=== PATIENT | female | born 1965 | race Caucasian/White ===

== ENCOUNTER → 2019-01-30 12:08 | Outpatient (CLI) | payer OTHER, SELFPAY ==
[2019-01-30 12:23] LABS: Specimen Label BRCA
== END ==
PROVIDERS: PCP Obstetrics & Gynecology; Visit Provider Obstetrics & Gynecology
DX: Z80.41 Family history of malignant neoplasm of ovary (principal); Z80.3 Family history of malignant neoplasm of breast
CPT/HCPCS: 36415

== ENCOUNTER 2019-03-01 14:18 | Emergency (ER) | payer OTHER, SELFPAY ==
[2019-03-01 14:20] VITALS: BP 151/83; PULSE 66; RESP 18; TEMP 36.7; O2SAT 100
--- NOTE | 2019-03-01 14:45 | PC.NURSE ---
CSM fully intact. No neuro deficit. c/o feeling fullness @ cervical spine w/o tenderness. States it just feels weird or tingling. + headache. No vision changes. Denies fever but + night sweats. 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
[2019-03-01 14:48] LABS: Add Manual Diff / Slide Review NO; Basophils Absolute Auto 100 /uL (0-100); Basophils Percent Auto 0.9 % (0-2); Eosinophils Absolute Auto 100 /uL (0-450); Eosinophils Percent Auto 1.5 % (2-4); Hematocrit 38.3 % (36-46); Hemoglobin 12.8 g/dL (12.0-16.0); Lymphocytes Absolute Auto 1900 /uL (1100-4500); Mean Corpuscular HGB Conc 33.5 % (30-36); Mean Corpuscular Hemoglobin 29.7 PG (26-34); Mean Corpuscular Volume 88.6 fL (80-100); Monocytes Absolute Auto 700 /uL (0-900); Monocytes Percent Auto 7.8 % (3-14); Neutrophils Absolute Auto 5900 /uL (1500-7000); Neutrophils Percent Auto 67.8 % (50-75); Platelet Count 249 X10^3/uL (150-400); Red Blood Cell Count 4.32 X10^6/uL (4.0-5.2); Red Cell Distribution Width 13.5 % (11.6-14.8); White Blood Cell Count 8.8 X10^3/uL (4.5-11.0)
[2019-03-01 14:55] LABS: Prothrombin Time 11.5 SECONDS (10.1-12.7)
[2019-03-01 14:58] LABS: PTT Partial Thromboplastin Tim 36 SECONDS (26.4-36.2)
[2019-03-01 15:04] LABS: Alanine Aminotransferase 16 IU/L (<35); Albumin 4.3 g/dL (3.5-5.0); Albumin Globulin Ratio 1.4 (1.0-2.8); Alkaline Phosphatase 77 U/L (38-126); Aspartate Aminotransferase 24 IU/L (14-36); BUN Creatinine Ratio 22.5 (6-22); Bilirubin Total 0.3 mg/dL (0.2-1.3); Blood Urea Nitrogen 18 mg/dL (7-17); Calcium 9.3 mg/dL (8.4-10.2); Carbon Dioxide 26 mmol/L (22-32); Chloride 102 mmol/L (98-107); Estimated Glomerular Filt Rate > 60.0 mL/min (>60); Globulin 3.1 g/dL (1.7-4.1); Glucose 78 mg/dL (70-100); HEMOLYSIS < 15 (0-50); Lipase 80 U/L (23-300); Potassium 4.3 mmol/L (3.4-5.1); Sodium 137 mmol/L (137-145); Total Protein 7.4 g/dL (6.3-8.2)
[2019-03-01 15:06] LABS: C-Reactive Protein Quant 0.6 mg/dL (<1.0); Erythrocyte Sedimentation Rate 29 MM/HR (0-20)
[2019-03-01 15:07] LABS: Lactate (Lactic Acid) < 0.5 mmol/L (0.7-2.1)
[2019-03-01 15:20] LABS: Procalcitonin < 0.05 ng/mL (<0.5)
--- NOTE | 2019-03-01 15:42 | ED.BACK ---
HPI - Back Pain/Injury <Renata Garrido DO - Last Filed: 03/02/19 07:11> General Chief Complaint: Back Pain/Injury Stated Complaint: back pain,swelling in back of neck Time Seen by Provider: 03/01/19 15:40 Source: patient Limitations: no limitations History of Present Illness HPI Narrative: Patient is a 53-year-old female with history of endocarditis and recent osteomyelitis of July through October of 2018 presenting with increased spine pain in the thoracic area where she previously had the osteomyelitis. She denies any fever chills no chest pain shortness of breath or body aches. This feels similar to her previous osteomyelitis. She says that last time she did not present with fever either. She was followed and seen at the [facility] where she was treated. She called her infectious disease doctor down there today who recommended she go to the nearest hospital for evaluation. Related Data Home Medications Medication Instructions Recorded Confirmed Esomeprazole Magnesium (Nexium) 40 mg PO Q DAY #0 08/07/07 11/28/18 amlodipine 5 mg tablet 5 mg PO DAILY 10/04/18 03/01/19 atorvastatin 20 mg tablet 20 mg PO DAILY 10/04/18 03/01/19 spironolactone 25 mg tablet 25 mg PO DAILY 10/04/18 03/01/19 sertraline 100 mg PO DAILY 03/01/19 03/01/19 Previous Rx's Medication Instructions Recorded estradiol 0.5 gram VAG DAILY #42.5 gram 10/31/18 Allergies Allergy/AdvReac Type Severity Reaction Status Date / Time Sulfa (Sulfonamide Allergy Verified 03/01/19 14:25 Antibiotics) Review of Systems <DO Kirti Gamino Last Filed: 03/02/19 07:11> Review of Systems Narrative: GENERAL: Denies chills, fatigue, malaise, fever, sweats, travel HEENT: Denies sinus pain, ear pain, sore throat, difficulty swallowing, neck pain RESPIRATORY: Denies dyspnea, cough, wheezing, hemoptysis, sputum. CARDIOVASCULAR: Denies chest pain, palpitations, orthopnea, edema GASTROINTESTINAL: Denies nausea, vomiting, abdominal pain, diarrhea, constipation, melena. : Denies dysuria, frequency, incontinence, hematuria, urinary retention, flank pain. MUSCULOSKELETAL: See HPI SKIN: No rash, no erythema, no pruritus NEUROLOGIC: Denies weakness, dizziness, headache, numbness, change in speech, confusion PSYCHIATRIC: No concerning psychosocial issues. 12 point review of systems is negative except for those stated above and HPI Patient History <Renata Garrido DO - Last Filed: 03/02/19 07:11> Medical History Abnormal Pap smear of cervix (Acute ~1996) Family history of ovarian cancer (Acute) Fibroid uterus (Acute) Vertigo (Acute ~2015) Surgical History Anesthesia (Resolved) History of removal of cyst (Resolved ~1994) Family History Father Multiple myeloma Cancer Mother Mental health problem Alzheimer's dementia, late onset Brother Mitral valve prolapse Sister Ovarian cancer Brother Marfan syndrome Grandfather Stroke Grandmother Alzheimer's disease Grandfather History of heart disease Family/Other Anxiety Social History Smoking Status: Never smoker Smoking Status: Never smoker alcohol intake frequency: 0-2 drinks per day Substance Use Type: does not use Exam <Renata Garrido DO - Last Filed: 03/02/19 07:11> Initial Vital Signs Initial Vital Signs: Vital Signs Temperature 98.0 F 03/01/19 14:20 Pulse Rate 66 03/01/19 14:20 Respiratory Rate 18 03/01/19 14:20 Blood Pressure 151/83 H 03/01/19 14:20 Pulse Oximetry 100 03/01/19 14:20 GENERAL: Well-appearing, well-nourished and in no acute distress. HEENT: Head atraumatic,EOMI, pupils reactive, face symmetric, moist mucous membranes CARDIOVASCULAR: Regular rate and rhythm without murmurs, rubs or gallops. RESPIRATORY: Breath sounds equal bilaterally, no wheezes rales or rhonchi. ABDOMEN: Soft, nontender. Normoactive bowel sounds all 4 quadrants. No guarding or rebound. BACK: Vertebral tenderness in thoracic spine T7-8 area noted edema tender to touch EXTREMITIES: Normal range of motion, no clubbing or edema. Neurovascularly intact NEUROLOGICAL: Alert and oriented x4.Normal gait and speech. SKIN: Warm, dry, no laceration, no petechiae, no rashes or lesions. <oTm Hooker, DO - Last Filed: 03/02/19 03:45> Initial Vital Signs Initial Vital Signs: Vital Signs Temperature 98.0 F 03/01/19 14:20 Pulse Rate 66 03/01/19 14:20 Respiratory Rate 18 03/01/19 14:20 Blood Pressure 151/83 H 03/01/19 14:20 Pulse Oximetry 100 03/01/19 14:20 Course <Renata Garrido, DO - Last Filed: 03/02/19 07:11> Orders Ordered: ED Orders 03/01/19 14:40 CRP [C-Reactive Protein Quant] Stat Complete Blood Count AUTO DIFF Stat Comprehensive Metabolic Panel Stat Erythrocyte Sedimentation Rate Stat Lactate (Lactic Acid) Stat Lipase Stat Partial Thromboplastin Time Stat Procalcitonin Stat Prothrombin Time INR Stat 03/01/19 14:54 Blood Culture Stat 03/01/19 15:56 MR thoracic spine wo/w con Stat Vital Signs Vital signs: Vital Signs - 8 hr 03/01/19 20:15 Pulse Rate 75 Blood Pressure 155/84 H Pulse Oximetry 100 <Tom Hooker, DO - Last Filed: 03/02/19 03:45> Course Course Narrative: Patient received in sign-out from Dr. Garrido. I have performed an independent history and physical. I have spoken with full spine surgery and the [facility] and after reviewing the patient's case as well as her MRI they do not feel that today's findings represent an acute condition and certainly not 1 that requires antibiotics or specific intervention. The patient has a scheduled appointment in the upcoming days and a recommend she follow this plan. She is nontoxic, not septic and denies any neurologic symptoms. Return precautions have been given, questions answered and patient is in complete agreement with this plan Orders Ordered: ED Orders 03/01/19 14:40 CRP [C-Reactive Protein Quant] Stat Complete Blood Count AUTO DIFF Stat Comprehensive Metabolic Panel Stat Erythrocyte Sedimentation Rate Stat Lactate (Lactic Acid) Stat Lipase Stat Partial Thromboplastin Time Stat Procalcitonin Stat Prothrombin Time INR Stat 03/01/19 14:54 Blood Culture Stat 03/01/19 15:56 MR thoracic spine wo/w con Stat Vital Signs Vital signs: Vital Signs - 8 hr 03/01/19 20:15 Pulse Rate 75 Blood Pressure 155/84 H Pulse Oximetry 100 MDM - Back Pain/Injury <Renata Hema, DO - Last Filed: 03/02/19 07:11> Lab Data Attestation: I reviewed the patient's lab results. Result diagrams: 03/01/19 14:40 03/01/19 14:40 Labs: Lab Results 03/01/19 03/01/19 03/01/19 Range/Units 14:40 14:40 14:40 WBC 8.8 (4.5-11.0) X10^3/uL RBC 4.32 (4.0-5.2) X10^6/uL Hgb 12.8 (12.0-16.0) g/dL Hct 38.3 (36-46) % MCV 88.6 (80-100) fL MCH 29.7 (26-34) PG MCHC 33.5 (30-36) % RDW 13.5 (11.6-14.8) % Plt Count 249 (150-400) X10^3/uL Neut % (Auto) 67.8 (50-75) % Lymph % (Auto) 22.0 L (25-40) % Fountain % (Auto) 7.8 (3-14) % Eos % (Auto) 1.5 L (2-4) % Baso % (Auto) 0.9 (0-2) % Neut # (Auto) 5900 (0244-1606) /uL Lymph # (Auto) 1900 (7268-9228) /uL Fountain # (Auto) 700 (0-900) /uL Eos # (Auto) 100 (0-450) /uL Baso # (Auto) 100 (0-100) /uL ESR (0-20) MM/HR PT 11.5 (10.1-12.7) SECONDS INR 1.0 (0.9-1.3) APTT 36 (26.4-36.2) SECONDS Sodium (137-145) mmol/L Potassium (3.4-5.1) mmol/L Chloride (98-107) mmol/L Carbon Dioxide (22-32) mmol/L BUN (7-17) mg/dL Creatinine (0.52-1.04) mg/dL Estimated GFR (>60) mL/min BUN/Creatinine Ratio (6-22) Glucose (70-100) mg/dL Lactate (0.7-2.1) mmol/L Calcium (8.4-10.2) mg/dL Total Bilirubin (0.2-1.3) mg/dL AST (14-36) IU/L ALT (<35) IU/L Alkaline Phosphatase (38-126) U/L C-Reactive Protein (<1.0) mg/dL Total Protein (6.3-8.2) g/dL Albumin (3.5-5.0) g/dL Globulin (1.7-4.1) g/dL Albumin/Globulin Ratio (1.0-2.8) Lipase (23-300) U/L Procalcitonin < 0.05 (<0.5) ng/mL 03/01/19 03/01/19 03/01/19 Range/Units 14:40 14:40 14:40 WBC (4.5-11.0) X10^3/uL RBC (4.0-5.2) X10^6/uL Hgb (12.0-16.0) g/dL Hct (36-46) % MCV (80-100) fL MCH (26-34) PG MCHC (30-36) % RDW (11.6-14.8) % Plt Count (150-400) X10^3/uL Neut % (Auto) (50-75) % Lymph % (Auto) (25-40) % Fountain % (Auto) (3-14) % Eos % (Auto) (2-4) % Baso % (Auto) (0-2) % Neut # (Auto) (8401-7198) /uL Lymph # (Auto) (7519-4350) /uL Fountain # (Auto) (0-900) /uL Eos # (Auto) (0-450) /uL Baso # (Auto) (0-100) /uL ESR 29 H (0-20) MM/HR PT (10.1-12.7) SECONDS INR (0.9-1.3) APTT (26.4-36.2) SECONDS Sodium 137 (137-145) mmol/L Potassium 4.3 (3.4-5.1) mmol/L Chloride 102 (98-107) mmol/L Carbon Dioxide 26 (22-32) mmol/L BUN 18 H (7-17) mg/dL Creatinine 0.80 (0.52-1.04) mg/dL Estimated GFR > 60.0 (>60) mL/min BUN/Creatinine Ratio 22.5 H (6-22) Glucose 78 (70-100) mg/dL Lactate < 0.5 L (0.7-2.1) mmol/L Calcium 9.3 (8.4-10.2) mg/dL Total Bilirubin 0.3 (0.2-1.3) mg/dL AST 24 (14-36) IU/L ALT 16 (<35) IU/L Alkaline Phosphatase 77 (38-126) U/L C-Reactive Protein (<1.0) mg/dL Total Protein 7.4 (6.3-8.2) g/dL Albumin 4.3 (3.5-5.0) g/dL Globulin 3.1 (1.7-4.1) g/dL Albumin/Globulin Ratio 1.4 (1.0-2.8) Lipase 80 (23-300) U/L Procalcitonin (<0.5) ng/mL 03/01/19 Range/Units 14:40 WBC (4.5-11.0) X10^3/uL RBC (4.0-5.2) X10^6/uL Hgb (12.0-16.0) g/dL Hct (36-46) % MCV (80-100) fL MCH (26-34) PG MCHC (30-36) % RDW (11.6-14.8) % Plt Count (150-400) X10^3/uL Neut % (Auto) (50-75) % Lymph % (Auto) (25-40) % Fountain % (Auto) (3-14) % Eos % (Auto) (2-4) % Baso % (Auto) (0-2) % Neut # (Auto) (3178-8222) /uL Lymph # (Auto) (5438-2837) /uL Fountain # (Auto) (0-900) /uL Eos # (Auto) (0-450) /uL Baso # (Auto) (0-100) /uL ESR (0-20) MM/HR PT (10.1-12.7) SECONDS INR (0.9-1.3) APTT (26.4-36.2) SECONDS Sodium (137-145) mmol/L Potassium (3.4-5.1) mmol/L Chloride (98-107) mmol/L Carbon Dioxide (22-32) mmol/L BUN (7-17) mg/dL Creatinine (0.52-1.04) mg/dL Estimated GFR (>60) mL/min BUN/Creatinine Ratio (6-22) Glucose (70-100) mg/dL Lactate (0.7-2.1) mmol/L Calcium (8.4-10.2) mg/dL Total Bilirubin (0.2-1.3) mg/dL AST (14-36) IU/L ALT (<35) IU/L Alkaline Phosphatase (38-126) U/L C-Reactive Protein 0.6 (<1.0) mg/dL Total Protein (6.3-8.2) g/dL Albumin (3.5-5.0) g/dL Globulin (1.7-4.1) g/dL Albumin/Globulin Ratio (1.0-2.8) Lipase (23-300) U/L Procalcitonin (<0.5) ng/mL Urine Dip Bedside Urine Glucose Negative Bedside Urine Bilirubin - Negative Bedside Urine Ketone +/- 5 Urine Specific [place] 1.015 Bedside Urine Occult Blood - Negative Bedside Urine pH 6.5 Bedside Urine Protein - Negative Bedside Urine Urobilinogen - Negative Bedside Urine Nitrite - Negative Bedside Urine Leukocytes - Negative Esterase Imaging Data MR thoracic: Radiologist's Impression: PROCEDURE: MR THORACIC SPINE WO/W CON INDICATIONS: pain t7-8 with hx of osteomyolitis TECHNIQUE: Noncontrast sagittal T1 spin echo and T2 fast spin echo, sagittal STIR, axial T1 and T2 fast spin echo through the thoracic spine. After the administration of contrast, axial and sagittal T1 spin echo with fat saturation through the thoracic spine. COMPARISON: None. FINDINGS: Image quality: Excellent. Alignment and curvature: There is normal bony alignment. Marrow: Marrow is of normal overall signal. No acute vertebral body compression fractures. There is mild heterogeneous low signal intensity involving the vertebral bodies of T8 and T9 without inflammatory changes or enhancement. This is favored to represent sequela of previously reported osteomyelitis discitis at this level. There is near-complete disc space loss at T8/T9 compatible with previous osteomyelitis discitis. There is a small focus of enhancement measuring approximately 7 mm in diameter involving the superior endplate of T9 without adjacent marrow edema or other areas of suspicious enhancement. Spinal cord: Visualized spinal cord is of normal signal and size, without abnormal enhancement. No abnormal epidural fluid collection or enhancement. Paraspinous soft tissues: No paravertebral masses. There is minimal paraspinal enhancement involving the left side at this level. No evidence for focal fluid collections at this level. Miscellaneous: Central canal and foramina appear widely patent at all scanned levels. There is a 1 cm vertebral body hemangioma seen at T4. There is a 6 mm inferior, posterior right thyroid lobe nodule. IMPRESSION: Small 6 mm focus of enhancement involving the superior endplate of T9 with mild paraspinal soft tissue enhancement at this level suspicious for possible early osteomyelitis/discitis as this is the same level of previous osteomyelitis /discitis. However, no significant surrounding marrow edema of the T8 or T9 vertebral body at this level. No organized fluid collection. Findings were discussed with Dr. Garrido at 1905 hrs. Dictated by: Aroldo Martines M.D. on 03/01/2019 at 18:51 MDM Narrative Medical decision making narrative: Patient is afebrile no leukocytosis. I have been able to review her MRI from November which did show T8-T9 disc signal and plain of the T9. No ventral epidural collection no paravertebral soft tissue abnormality. Today she has minimally elevated ESR and CRP which have actually decreased from her acute infection. Questionable early osteomyelitis/diskitis. Images have been pushed the [facility] waiting for spine/infectious Disease to call back. Patient overall appears nontoxic and well and would prefer to go home. Patient signed out to Dr. Hooker for any further medical management <Tom Hooker, DO - Last Filed: 03/02/19 03:45> Lab Data Labs: Lab Results 03/01/19 03/01/19 03/01/19 Range/Units 14:40 14:40 14:40 WBC 8.8 (4.5-11.0) X10^3/uL RBC 4.32 (4.0-5.2) X10^6/uL Hgb 12.8 (12.0-16.0) g/dL Hct 38.3 (36-46) % MCV 88.6 (80-100) fL MCH 29.7 (26-34) PG MCHC 33.5 (30-36) % RDW 13.5 (11.6-14.8) % Plt Count 249 (150-400) X10^3/uL Neut % (Auto) 67.8 (50-75) % Lymph % (Auto) 22.0 L (25-40) % Fountain % (Auto) 7.8 (3-14) % Eos % (Auto) 1.5 L (2-4) % Baso % (Auto) 0.9 (0-2) % Neut # (Auto) 5900 (3333-8306) /uL Lymph # (Auto) 1900 (7968-7499) /uL Fountain # (Auto) 700 (0-900) /uL Eos # (Auto) 100 (0-450) /uL Baso # (Auto) 100 (0-100) /uL ESR (0-20) MM/HR PT 11.5 (10.1-12.7) SECONDS INR 1.0 (0.9-1.3) APTT 36 (26.4-36.2) SECONDS Sodium (137-145) mmol/L Potassium (3.4-5.1) mmol/L Chloride (98-107) mmol/L Carbon Dioxide (22-32) mmol/L BUN (7-17) mg/dL Creatinine (0.52-1.04) mg/dL Estimated GFR (>60) mL/min BUN/Creatinine Ratio (6-22) Glucose (70-100) mg/dL Lactate (0.7-2.1) mmol/L Calcium (8.4-10.2) mg/dL Total Bilirubin (0.2-1.3) mg/dL AST (14-36) IU/L ALT (<35) IU/L Alkaline Phosphatase (38-126) U/L C-Reactive Protein (<1.0) mg/dL Total Protein (6.3-8.2) g/dL Albumin (3.5-5.0) g/dL Globulin (1.7-4.1) g/dL Albumin/Globulin Ratio (1.0-2.8) Lipase (23-300) U/L Procalcitonin < 0.05 (<0.5) ng/mL 03/01/19 03/01/19 03/01/19 Range/Units 14:40 14:40 14:40 WBC (4.5-11.0) X10^3/uL RBC (4.0-5.2) X10^6/uL Hgb (12.0-16.0) g/dL Hct (36-46) % MCV (80-100) fL MCH (26-34) PG MCHC (30-36) % RDW (11.6-14.8) % Plt Count (150-400) X10^3/uL Neut % (Auto) (50-75) % Lymph % (Auto) (25-40) % Fountain % (Auto) (3-14) % Eos % (Auto) (2-4) % Baso % (Auto) (0-2) % Neut # (Auto) (3534-0152) /uL Lymph # (Auto) (9494-5517) /uL Fountain # (Auto) (0-900) /uL Eos # (Auto) (0-450) /uL Baso # (Auto) (0-100) /uL ESR 29 H (0-20) MM/HR PT (10.1-12.7) SECONDS INR (0.9-1.3) APTT (26.4-36.2) SECONDS Sodium 137 (137-145) mmol/L Potassium 4.3 (3.4-5.1) mmol/L Chloride 102 (98-107) mmol/L Carbon Dioxide 26 (22-32) mmol/L BUN 18 H (7-17) mg/dL Creatinine 0.80 (0.52-1.04) mg/dL Estimated GFR > 60.0 (>60) mL/min BUN/Creatinine Ratio 22.5 H (6-22) Glucose 78 (70-100) mg/dL Lactate < 0.5 L (0.7-2.1) mmol/L Calcium 9.3 (8.4-10.2) mg/dL Total Bilirubin 0.3 (0.2-1.3) mg/dL AST 24 (14-36) IU/L ALT 16 (<35) IU/L Alkaline Phosphatase 77 (38-126) U/L C-Reactive Protein (<1.0) mg/dL Total Protein 7.4 (6.3-8.2) g/dL Albumin 4.3 (3.5-5.0) g/dL Globulin 3.1 (1.7-4.1) g/dL Albumin/Globulin Ratio 1.4 (1.0-2.8) Lipase 80 (23-300) U/L Procalcitonin (<0.5) ng/mL 03/01/19 Range/Units 14:40 WBC (4.5-11.0) X10^3/uL RBC (4.0-5.2) X10^6/uL Hgb (12.0-16.0) g/dL Hct (36-46) % MCV (80-100) fL MCH (26-34) PG MCHC (30-36) % RDW (11.6-14.8) % Plt Count (150-400) X10^3/uL Neut % (Auto) (50-75) % Lymph % (Auto) (25-40) % Fountain % (Auto) (3-14) % Eos % (Auto) (2-4) % Baso % (Auto) (0-2) % Neut # (Auto) (0566-7434) /uL Lymph # (Auto) (0483-5651) /uL Fountain # (Auto) (0-900) /uL Eos # (Auto) (0-450) /uL Baso # (Auto) (0-100) /uL ESR (0-20) MM/HR PT (10.1-12.7) SECONDS INR (0.9-1.3) APTT (26.4-36.2) SECONDS Sodium (137-145) mmol/L Potassium (3.4-5.1) mmol/L Chloride (98-107) mmol/L Carbon Dioxide (22-32) mmol/L BUN (7-17) mg/dL Creatinine (0.52-1.04) mg/dL Estimated GFR (>60) mL/min BUN/Creatinine Ratio (6-22) Glucose (70-100) mg/dL Lactate (0.7-2.1) mmol/L Calcium (8.4-10.2) mg/dL Total Bilirubin (0.2-1.3) mg/dL AST (14-36) IU/L ALT (<35) IU/L Alkaline Phosphatase (38-126) U/L C-Reactive Protein 0.6 (<1.0) mg/dL Total Protein (6.3-8.2) g/dL Albumin (3.5-5.0) g/dL Globulin (1.7-4.1) g/dL Albumin/Globulin Ratio (1.0-2.8) Lipase (23-300) U/L Procalcitonin (<0.5) ng/mL Urine Dip Bedside Urine Glucose Negative Bedside Urine Bilirubin - Negative Bedside Urine Ketone +/- 5 Urine Specific [place] 1.015 Bedside Urine Occult Blood - Negative Bedside Urine pH 6.5 Bedside Urine Protein - Negative Bedside Urine Urobilinogen - Negative Bedside Urine Nitrite - Negative Bedside Urine Leukocytes - Negative Esterase Discharge Plan Departure Patient Disposition: Home Clinical Impression: Back pain Qualifiers: Back pain location: thoracic back pain Chronicity: acute Back pain laterality: midline Qualified Code(s): M54.6 - Pain in thoracic spine Discharge Date/Time: 03/01/19 20:16 Instructions: DI for Thoracic Back Pain Activity Restrictions/Additional Instructions: *You have been diagnosed with [acute thoracic back pain, thought not to be secondary to infection] *What to do: *Take medications as directed *Follow up with your doctors at the [facility] as planned next week, call them in the morning and let them know that you were seen in the emergency department so they may request our records *Return to ER if you should have any new, worsening or concerning symptoms, such as [worsening pain, radiation of pain, numbness, tingling, weakness, fever, shaking chills or other bothersome symptoms] Prescriptions: No Action Esomeprazole Magnesium (Nexium) 40 mg PO Q DAY Qty: 0 RF: 0 estradiol [Estrace] 0.01 % (0.1 mg/gram) cream 0.5 gram VAG DAILY Qty: 42.5 RF: 3 atorvastatin 20 mg tablet 20 mg PO DAILY RF: 0 amlodipine 5 mg tablet 5 mg PO DAILY RF: 0 spironolactone 25 mg tablet 25 mg PO DAILY RF: 0 sertraline 100 mg tablet 100 mg PO DAILY RF: 0 Referrals: Laxmi Mahajan MD [Primary Care Provider] -
--- NOTE | 2019-03-01 15:56 | DI.MRI.S_ITS ---
PROCEDURE: MR THORACIC SPINE WO/W CON INDICATIONS: pain t7-8 with hx of osteomyolitis TECHNIQUE: Noncontrast sagittal T1 spin echo and T2 fast spin echo, sagittal STIR, axial T1 and T2 fast spin echo through the thoracic spine. After the administration of contrast, axial and sagittal T1 spin echo with fat saturation through the thoracic spine. COMPARISON: None. FINDINGS: Image quality: Excellent. Alignment and curvature: There is normal bony alignment. Marrow: Marrow is of normal overall signal. No acute vertebral body compression fractures. There is mild heterogeneous low signal intensity involving the vertebral bodies of T8 and T9 without inflammatory changes or enhancement. This is favored to represent sequela of previously reported osteomyelitis discitis at this level. There is near-complete disc space loss at T8/T9 compatible with previous osteomyelitis discitis. There is a small focus of enhancement measuring approximately 7 mm in diameter involving the superior endplate of T9 without adjacent marrow edema or other areas of suspicious enhancement. Spinal cord: Visualized spinal cord is of normal signal and size, without abnormal enhancement. No abnormal epidural fluid collection or enhancement. Paraspinous soft tissues: No paravertebral masses. There is minimal paraspinal enhancement involving the left side at this level. No evidence for focal fluid collections at this level. Miscellaneous: Central canal and foramina appear widely patent at all scanned levels. There is a 1 cm vertebral body hemangioma seen at T4. There is a 6 mm inferior, posterior right thyroid lobe nodule. IMPRESSION: Small 6 mm focus of enhancement involving the superior endplate of T9 with mild paraspinal soft tissue enhancement at this level suspicious for possible early osteomyelitis/discitis as this is the same level of previous osteomyelitis /discitis. However, no significant surrounding marrow edema of the T8 or T9 vertebral body at this level. No organized fluid collection. Findings were discussed with Dr. Garrido at 1905 hrs. Dictated by: Aroldo Martines M.D. on 03/01/2019 at 18:51 Approved by: Aroldo Martines M.D. on 03/01/2019 at 19:14
[2019-03-01 18:29] VITALS: BP 135/83; PULSE 86; RESP 16; O2SAT 99
[2019-03-01 20:15] VITALS: BP 155/84; PULSE 75; O2SAT 100
== END 2019-03-01 20:16 | disposition home or self-care (01) ==
PROVIDERS: Emergency Medicine; Emergency Provider Emergency Medicine; PCP Obstetrics & Gynecology
DX: M54.6 Pain in thoracic spine (principal); R60.0 Localized edema
CPT/HCPCS: 36415; 72157; 80053; 81003; 83605; 83690; 84145; 85025; 85610; 85651; 85730; 86140; 87040; 99284; A9579

== ENCOUNTER → 2019-08-08 15:51 | Outpatient (CLI) | payer OTHER, SELFPAY ==
--- NOTE | 2019-08-08 15:53 | DI.US.S_ITS ---
ULTRASOUND OF RIGHT BREAST: 08/08/2019 CLINICAL: Possible Rt breast abscess. No prior exams were available for comparison. Color flow and real-time ultrasound of the right breast were performed on the areas of interest. Lundberg scale images of the real-time examination were reviewed. Multiple dilated ducts are noted in the right breast in the region palpated by the patient. There is no discrete fluid collection to suggest abscess, hematoma, or seroma. There is no hyperemia within this region. No discrete mass is visualized. IMPRESSION: INCOMPLETE: NEEDS ADDITIONAL IMAGING EVALUATION Ductal ectasia at 9:00 in the right breast in the area palpated by the patient. Diagnostic mammogram of this region is recommended. Additionally, the patient is overdue for a screening mammogram of the left breast. Clinical followup is also recommended. This exam was interpreted at Station ID: [id number]. Electronically Signed By: Radha brock/:08/08/2019 16:50:09 letter sent: Additional Imaging Needed Ultrasound BI-RADS: 0 Indeterminate
== END ==
PROVIDERS: PCP Obstetrics & Gynecology; Referring Provider Surgery; Visit Provider Surgery
DX: R92.8 Other abnormal and inconclusive findings on diagnostic imaging of breast (principal); N60.41 Mammary duct ectasia of right breast; N64.4 Mastodynia
CPT/HCPCS: 76642

== ENCOUNTER → 2019-11-19 14:09 | Outpatient (CLI) | payer OTHER, SELFPAY ==
[2019-11-21 17:19] LABS: COVID19 Sendout Not Detected (Not Detect)
== END ==
PROVIDERS: PCP Obstetrics & Gynecology; Visit Provider Nurse Practitioner
DX: Z11.59 Encounter for screening for other viral diseases (principal)
CPT/HCPCS: 87635

== ENCOUNTER 2019-11-22 10:44 | Day surgery (SDC) | payer OTHER, SELFPAY ==
[2019-11-19 12:48] VITALS: BMI 32.1
[2019-11-22] VITALS (14 sets, daily range): BP systolic 94–140; BP diastolic 41–92; PULSE 72–94; RESP 10–18; TEMP 36–36.7; O2SAT 93–100; BMI 32.1
--- NOTE | 2019-11-22 | PATH_ITS ---
[facility] Accession Number: [id number] . 01 Material submitted: . uterus - UTERUS AND BILATERAL FALLOPIAN TUBES AND OVARIES . 01 Diagnosis: Uterus and Bilateral Tubes and Ovaries, Hysterectomy and Bilateral Salpingo-oophorectomy: Weakly proliferative endometrium; no atypical hyperplasia. Benign leiomyomata. Endometriosis. Ovaries with simple serous cyst, cystic corpus luteum and benign inclusion cysts. Complete cross-section of fimbriated bilateral fallopian tubes with benign paratubal cysts. No malignancy. [facility] 11/26/2019 1305 Local . 01 Electronically signed: . Nazia Waters MD, Pathologist NPI- [id number] . 01 Gross description: . Received in formalin, labeled uterus, bilateral fallopian tubes and ovaries, and consists of a 280-gram morcellated uterus measuring 15.0 x 15.0 x 10.0 cm in aggregate. The serosa is rice-pink and smooth. The cervix is not identified. There is scant identifiable endometrial mucosa. The myometrium is rice-pink and trabeculated. There are multiple fragmented rice-white whorled leiomyomata measuring up to 8.0 cm in greatest dimension. There are no areas of hemorrhage, necrosis or cystic degeneration. Two fallopian tubes are identified measuring 3.0 cm in length by 0.5 cm in diameter and 7.0 cm in length by 0.5 cm in diameter. The serosa is pink-purple with fibrinous adhesions and multiple paratubal cysts ranging from 0.1 to 2.1 cm. Sectioning reveals a rice mucosa and stellate lumen measuring 0.2 cm in diameter. Two ovaries are identified measuring 2.2 x 1.8 x 1.5 cm and 3.6 x 2.0 x 2.0 cm. The external surface is focally disrupted and rice-yellow. The larger ovary has a 1.0 x 1.0 x 0.8 cm unilocular serous-filled smooth-walled cyst. Sectioning through the ovaries reveals a rice-pink ovarian stroma with corpora albicantia and corpus luteum. The larger ovary displays smooth-walled cysts ranging from 0.1 to 0.5 cm. Risk Lead sections are submitted. . A1-A2: candidate endometrium. A3-A6: sales service representative leiomyomata. A7-A8: sales service representative smaller fallopian tube with bisected fimbria. A9-A10: sales service representative larger fallopian tube with bisected fimbria. A11: sales service representative smaller ovary. A12: sales service representative larger ovary. (EA/[id number]) /MRV 11/26/2019 1305 Local . 01 Pathologist provided ICD-10: N80.0, D25.9, R39.89 . 01 CPT . 171514 Performed at: 01 [facility] [address] [place] [address], [place], [place] [id number] MD Neri Gomez MD Phone: [phone]
--- NOTE | 2019-11-22 10:58 | PM.PREOP ---
Pre-operative Note COVID-19 COVID-19 status: Negative Result date/Date tested (Pos, Neg/Pending): 11/19/19 Interval Note History & Physical reviewed/Exam performed by Physician: Yes Changes to H&P: No H&P completed within 30 days and has changed as indicated here:: 11/14/19
[2019-11-22] MEDS: LACTATED RINGERS 1,000 ML 100 ML IV ×3 (11:10→14:39)
[2019-11-22] MEDS: ACETAMINOPHEN 325 MG TABLET 975 MG PO (11:13)
[2019-11-22] MEDS: CEFAZOLIN 2 GM/100 ML FROZ.PIGGY IV (11:23)
--- NOTE | 2019-11-22 11:51 | SUR.OPER ---
Lithotomy on padded OR bed. [place] Pad Positioner under torso. Head on pillow, arms padded and tucked at sides. Legs secured in padded yellow fins stirrups.
[2019-11-22] MEDS: BUPIVACAINE 0.5% W/ EPI (PF) 30 ML VIAL INJ (11:59)
[2019-11-22] MEDS: ROPIVACAINE 0.2% PF 2 MG/ML 10ML AMP 20 ML INJ (12:00)
--- NOTE | 2019-11-22 14:09 | PM.GYNOP.1 ---
Operative Date/Time/Diagnoses Date of procedure: 11/22/19 Time of procedure: 14:09 Pre-op diagnosis: Fibroid uterus Bladder pressure Post-op diagnosis: same Procedure & Clinicians Procedure: Procedures Operation Date: 11/22/19 13:30 Actual Procedures Side Surgeon p Laparoscopic Supracervical Hysterectomy w/ bilateral oohorectomy-salpingectomy Laxmi Mahajan MD Indications: Fibroid uterus Bladder pressure Surgeon: Laxmi Mahajan Developmental Behavioral Physician: Shaunna Thomas Anesthesia Type: General Operative Notes Findings: Twelve week size multi fibroid uterus Normal tubes and ovaries Normal liver and gallbladder Normal appendix Closure Type: primary Specimen(s): left tube & ovary, right tube & ovary and uterus Applied: catheter (Removed at the end of the case) Estimated blood loss (mL): 75 Blood products transfused: none Procedure in detail: The patient was taken to the operating room where she was placed in the dorsal supine position. After adequate general endotracheal anesthesia was achieved, she was placed in the dorsal lithotomy position, and prepped and draped in the usual sterile fashion. A timeout was performed. A bivalve speculum was placed into the vagina and the anterior lip of the cervix grasped with a single-tooth tenaculum. The cervical os was sequentially dilated until the ZUMI uterine manipulator could pass easily into the endometrial cavity. The single-tooth tenaculum was removed from the anterior lip of the cervix, and the bivalve speculum was removed from the vagina. Attention was then turned to the abdomen where 6 mL of half percent Marcaine with epinephrine were injected in the umbilical fold. A 5 mm incision was made. The veress needle was placed into the peritoneal cavity, and its placement confirmed by aspiration and drop test. The veress needle was removed. A 5 mm trocar was placed without difficulty. 2 other incisions were made midway between the pubic symphysis and umbilicus after 5 mL of half percent Marcaine with epinephrine were injected. These were 5 mm incisions. Two, 5 mm trochars were placed under direct visualization. The right ovary was found to be adhesed to the right pelvic sidewall. The right tube was grasped with an atraumatic grasper. Using the plasma kinetic with settings of 40 W the mesosalpinx was cauterized and cut all the way down to the cornua of the uterus. The cornua of the uterus was then grasped with an atraumatic grasper. The utero-ovarian ligaments were cauterized and cut. The round ligament and broad ligament were cauterized and cut with plasma kinetic. Hemostasis was achieved. The bladder flap was created using the plasma kinetic with cautery and cut intermediate across. The uterine arteries on the right side were extensively cauterized with plasma kinetic. On the left side the left tube and ovary were grasped with an atraumatic grasper. The infundibulopelvic ligament on the left side was cauterized and cut. Hemostasis was achieved. The broad ligament and round ligament were cauterized and cut. The remainder of the bladder flap was created using the plasma kinetic, and the bladder taken down off the lower uterine segment and cervix. The uterine arteries on the left side were cauterized and cut with the PlasmaKinetic. Using the [place], the cervix was amputated from the uterus 2 cm above the uterosacral ligaments, after the ZUMI uterine manipulator was removed from the uterus and a moistened sponge stick was placed in the vagina. There was a small amount of bleeding noted from the posterior edge of the cervix, and this was cauterized for hemostasis. The endocervical canal was extensively cauterized with the PlasmaKinetic. The right ovary was grasped with an atraumatic grasper. The ureter was identified and was found to be peristalsing. The ovary was stuck to the right pelvic sidewall approximately 2.5 cm above the ureter. The ovary was grasped. The infundibulopelvic ligament on the right side was cauterized and cut. The ovary was taken down from the right pelvic sidewall. The ureter was again visualized and was found to be peristalsing. The ovary was placed into the anterior cul-de-sac. 6 mL of half percent Marcaine with epinephrine were injected above the pubic symphysis. A 12mm incision was made. A 12 mm trocar was placed under direct visualization. The uterus, tubes, and ovaries were placed into the endobag. The edges of the endobag were brought up through the skin. The Kale was placed into the endobag. The uterus was morcellated in approximately [12] pieces. The tubes and ovaries were also removed from the Endobag. The Endobag with the Kale were removed from the peritoneal cavity. The pelvis was copiously irrigated with warm normal saline. No bleeding was noted. The instruments were removed from the abdomen. The CO2 was allowed to escape. The trocars were removed from the abdomen. The suprapubic incision was closed on the fascia with 0 Vicryl. The subcutaneous layer was closed with 2 simple interrupted sutures with 3 0 Vicryl. All of the incisions were closed with 4-0 Biosyn in a subcuticular fashion. Steri strips, 2x2's and op sites were placed over the incisions. The moistened sponge stick was removed from the vagina. Sponge, lap, and instrument counts were correct x 2. The patient tolerated the procedure well, was taken to PACU in stable condition. Complications: none
--- NOTE | 2019-11-22 15:18 | PC.NURSE ---
Pt to room 210 via bed from PACU. Pt is awake and oriented x 3. Spouse is at the bedside. Pt oriented to room, call light, bed controls, and tv controls. Bed alarm on for safety. SCD's on and running. IVF infusing. Pt agrees to call for assistance as needed.
[2019-11-22] MEDS: KETOROLAC 30 MG/ML VIAL IV (18:24)
[2019-11-22] MEDS: CEFAZOLIN 1 GM/50 ML FROZ.PIGGY IV (18:26)
[2019-11-22] MEDS: AMLODIPINE 5 MG TABLET PO (21:03)
[2019-11-22] MEDS: DOCUSATE 250 MG CAPSULE PO (21:03)
[2019-11-22] MEDS: ATORVASTATIN 20 MG TABLET PO (21:03)
[2019-11-23 00:18] VITALS: BP 133/72; PULSE 84; RESP 18; TEMP 36.2; O2SAT 99
[2019-11-23] MEDS: KETOROLAC 30 MG/ML VIAL IV ×3 (01:40→12:19)
[2019-11-23] MEDS: LACTATED RINGERS 1,000 ML 100 ML IV (01:41)
[2019-11-23] MEDS: CEFAZOLIN 1 GM/50 ML FROZ.PIGGY IV ×2 (03:40→12:18)
--- NOTE | 2019-11-23 03:49 | PC.NURSE ---
Addendum entered by Laxmi Carlos R.N. 11/23/19 05:58: Satisfactory post op course. Condition remains essentially unchanged. IVF continue as per orders. Call light w/in reach, pt calls appropriately for needs. + Continue w/plan of care. Original Note: Pt resting at intervals. Received toradol earlier in shift. IVF LR @ 100cc/hr infusing via pump into right hand w/o incidence. Lap sites CDI. Assisted to BR w/o incidence. Call light w/in reach, bed alarm on for pt safety.
[2019-11-23 05:47] VITALS: BP 131/68; PULSE 72; RESP 18; TEMP 36; O2SAT 97
[2019-11-23 06:16] LABS: Add Manual Diff / Slide Review NO; Basophils Absolute Auto 0 /uL (0-100); Basophils Percent Auto 0.1 % (0-2); Eosinophils Absolute Auto 0 /uL (0-450); Hematocrit 37.7 % (36-46); Hemoglobin 12.1 g/dL (12.0-16.0); Lymphocytes Absolute Auto 1100 /uL (1100-4500); Lymphocytes Percent Auto 8.7 % (25-40); Mean Corpuscular HGB Conc 32.2 % (30-36); Mean Corpuscular Hemoglobin 29.3 PG (26-34); Mean Corpuscular Volume 91.1 fL (80-100); Monocytes Absolute Auto 800 /uL (0-900); Monocytes Percent Auto 5.9 % (3-14); Neutrophils Absolute Auto 11000 /uL (1500-7000); Neutrophils Percent Auto 85.3 % (50-75); Platelet Count 271 X10^3/uL (150-400); Red Blood Cell Count 4.14 X10^6/uL (4.0-5.2); Red Cell Distribution Width 13.3 % (11.6-14.8); White Blood Cell Count 12.9 X10^3/uL (4.5-11.0)
[2019-11-23 06:20] LABS: BUN Creatinine Ratio 20.3 (6-22); Blood Urea Nitrogen 13 mg/dL (7-17); Calcium 8.8 mg/dL (8.4-10.2); Carbon Dioxide 28 mmol/L (22-32); Chloride 104 mmol/L (98-107); Estimated Glomerular Filt Rate > 60.0 mL/min (>60); Glucose 120 mg/dL (70-100); HEMOLYSIS < 15 (0-50); Potassium 4.8 mmol/L (3.4-5.1); Sodium 138 mmol/L (137-145)
[2019-11-23 07:50] VITALS: BP 110/60; PULSE 69; RESP 16; TEMP 36.3; O2SAT 96
[2019-11-23] MEDS: PANTOPRAZOLE 40 MG TABLET PO (08:04)
[2019-11-23] MEDS: SERTRALINE 50 MG TABLET 100 MG PO (08:05)
[2019-11-23] MEDS: SPIRONOLACTONE 25 MG TABLET PO (08:05)
[2019-11-23] MEDS: DOCUSATE 250 MG CAPSULE PO (08:05)
--- NOTE | 2019-11-23 09:34 | P.PN_ITS ---
Subjective Subjective Date Patient Seen: 11/23/19 Time Patient Seen: 09:34 Interval history: Patient is a 54-year-old postop day # 1 status post laparoscopic supracervical hysterectomy with bilateral salpingo oophorectomy. The catheter was removed at the end of surgery. She was able to void without difficulties. She is tolerating a diet. She is ambulating without assistance. She has passed flatus. She is tolerating a diet. Exam Vital Signs (past 8 hours): - 11/23/19 05:47 11/23/19 07:50 Temperature 96.8 F L 97.3 F L Pulse Rate 72 69 Respiratory Rate 18 16 Blood Pressure 131/68 110/60 Pulse Oximetry 97 96 Oxygen Delivery Method Room Air Oxygen Flow Rate 0 Narrative Exam Narrative: Generally: Patient is sitting up in bed, no acute distress Lungs: Clear to auscultation bilaterally Cardiovascular: Regular rate and rhythm Abdomen: Soft, good bowel sounds Incisions: The umbilical incision has a small amount of serosanguineous fluid on the gauze. Otherwise all of the other incisions are clean dry and intact with op site Extremities: Negative Homans, no edema Objective Labs Result Diagrams: 11/23/19 05:30 11/23/19 05:30 Labs: Laboratory Results - last 24 hr 11/23/19 11/23/19 05:30 05:30 WBC 12.9 H RBC 4.14 Hgb 12.1 Hct 37.7 MCV 91.1 MCH 29.3 MCHC 32.2 RDW 13.3 Plt Count 271 Neut % (Auto) 85.3 H Lymph % (Auto) 8.7 L [place] % (Auto) 5.9 Eos % (Auto) 0.0 L Baso % (Auto) 0.1 Neut # (Auto) 96789 H Lymph # (Auto) 1100 [place] # (Auto) 800 Eos # (Auto) 0 Baso # (Auto) 0 Sodium 138 Potassium 4.8 Chloride 104 Carbon Dioxide 28 BUN 13 Creatinine 0.64 Estimated GFR > 60.0 BUN/Creatinine Ratio 20.3 Glucose 120 H Calcium 8.8 Assessment & Plan Post-op Postoperative Procedures: Procedures Operation Date: 11/22/19 13:30 Actual Procedures Side Surgeon p Laparoscopic Supracervical Hysterectomy w/ bilateral oohorectomy-salpingectomy Laxmi Mahajan MD Postoperative day: 1 Postoperative status: doing well Postoperative status narrative: Postop day # 1 status post LSCH/BSO doing very well Postoperative plan: discharge Postoperative plan narrative: Discharge to home Follow-up in 2 weeks for incision check Alternate ibuprofen and Tylenol for pain management Patient to call with fever, chills, redness or drainage around the incisions, or bleeding vaginally more than spotting to light Time Spent With Patient Time with patient: 15-24 minutes Quality VTE Deep Vein Thrombosis/Pulmonary Embolism Present on Admission: No
--- NOTE | 2019-11-23 09:37 | P.DS_ITS ---
History of Present Illness History of Present Illness Date Patient Seen: 11/23/19 Time Patient Seen: 09:37 Chief complaint: SDC Narrative: Patient is a 54-year-old postop day # 1 status post laparoscopic supracervical hysterectomy with bilateral salpingo-oophorectomy. Discharge Providers Provider Date of admission: 11/22/19 Discharge Date: 11/23/19 Primary care physician: Laxmi Mahajan MD Discharge provider: Laxmi Mahajan MD Summary Hospital Course Discharge Diagnosis: Enlarged fibroid uterus Right adnexal adhesions Status post laparoscopic supracervical hysterectomy with bilateral salpingo- oophorectomy and lysis of adhesions Hospital Course: Patient is a 54-year-old who was admitted on November 22, 2019 for a scheduled laparoscopic supracervical hysterectomy with bilateral salpingo- oophorectomy. She underwent the procedure without complication. Her catheter was removed at the completion of the procedure. She was able to void without the catheter. Her pain is controlled with Toradol and acetaminophen. She has tolerated a diet. She is ambulating without assistance. She has passed flatus. Status at Discharge Cognitive/behavioral status at discharge: oriented Functional status at discharge: independent ambulation Overall status at discharge: patient is progressing back to baseline Time Spent with Patient Time spent: Less than 30 minutes Exam Vital Signs (past 8 hours): - 11/23/19 05:47 11/23/19 07:50 Temperature 96.8 F L 97.3 F L Pulse Rate 72 69 Respiratory Rate 18 16 Blood Pressure 131/68 110/60 Pulse Oximetry 97 96 Oxygen Delivery Method Room Air Oxygen Flow Rate 0 Objective Labs Result Diagrams: 11/23/19 05:30 11/23/19 05:30 Labs: Laboratory Results - last 24 hr 11/23/19 11/23/19 05:30 05:30 WBC 12.9 H RBC 4.14 Hgb 12.1 Hct 37.7 MCV 91.1 MCH 29.3 MCHC 32.2 RDW 13.3 Plt Count 271 Neut % (Auto) 85.3 H Lymph % (Auto) 8.7 L [place] % (Auto) 5.9 Eos % (Auto) 0.0 L Baso % (Auto) 0.1 Neut # (Auto) 95049 H Lymph # (Auto) 1100 [place] # (Auto) 800 Eos # (Auto) 0 Baso # (Auto) 0 Sodium 138 Potassium 4.8 Chloride 104 Carbon Dioxide 28 BUN 13 Creatinine 0.64 Estimated GFR > 60.0 BUN/Creatinine Ratio 20.3 Glucose 120 H Calcium 8.8 Discharge Assessment & Plan Assessment and Plan Assessment: 54-year-old postop day # 1 doing very well after a laparoscopic supracervical hysterectomy with bilateral salpingo oophorectomy Plan of Treatment: Discharge to home Follow-up in 2 weeks for incision check Alternate ibuprofen and acetaminophen at home for pain management Patient to call with fever, chills, redness or drainage around the incisions, or bleeding vaginally more than spotting to light Discharge Plan Discharge Plan Patient Disposition: Home Discharge comment: Call with fever, chills, redness or drainage around the incisions, or bleeding vaginally more than spotting to light Ibuprofen 600 mg every 6 hours scheduled 1st couple of days Tylenol 650 mg every 6 hours in between ibuprofen doses Discharge Med Rec/Prescriptions Prescriptions: Continued esomeprazole magnesium 40 mg Capsule,Delayed Release(Dr/Ec) 40 mg PO DAILY Qty: 0 RF: 0 atorvastatin 20 mg tablet 20 mg PO DAILY RF: 0 spironolactone 25 mg tablet 25 mg PO DAILY RF: 0 sertraline 100 mg tablet 100 mg PO DAILY RF: 0 amlodipine 5 mg tablet 5 mg PO DAILY RF: 0 Follow up/Referrals: Laxmi Mahajan MD [Primary Care Provider] - 12/06/19 4:30 pm Discharge Orders: Discharge (Order); Ordered 11/23/19 Ordered By: Laxmi Mahajan Provider Discharge Instructions Diet: Regular Activity: Nothing in vagina for 4 weeks Skin/Wound/Dressing Care Report to your healthcare provider any signs of infection, such as:: chills, fever, increased pain, unusual drainage and unusual redness Dressing: Remove outer plastic dressings and gauze after for shower. Leave Steri-Strips in place Visit Report/Discharge Packet Instructions: How to Prevent Falls, DI for Postoperative Pain, Hysterectomy -- Laparoscopic Surgery Stand Alone Forms: Surgery Discharge Visit Report Forms: Stroke Signs & Symptoms Discharge Data Primary Care Provider: Laxmi Mahajan Attending Provider: Laxmi Mahajan Quality VTE Deep Vein Thrombosis/Pulmonary Embolism Present on Admission: No
--- NOTE | 2019-11-23 10:06 | PC.NURSE ---
Addendum entered by Isela Garcia R.N. 11/23/19 12:59: Discharge summary packet reviewed with pt. Aware of S/S of infection, follow up appointment, incision/dressing care. Umbilicus dressing is CDI after dressing change this morning. Pt states having all her personal belongings upon discharge. Pt's son present to drive pt home. No prescriptions per Dr. Mahajan and pt agrees she can manage pain with Ibuprofen and Acetaminophen. Pt aware to avoid constipation and straining. Adding stool softener after discharge. Pt left unit at 1255 via wheelchair in no distress with [employer] escort. Pt's son present to drive pt home. Addendum entered by Isela Garcia R.N. 11/23/19 12:13: Patient questioned whether needed to continue pill antibiotic post op for 1-2 more days per her pre-op appoinmtent at Dr. Mahajan's office. Called Dr. Mahajan cell at 1210, pt rec'd antibiotics IV post op, no further orders to continue upon discharge. Pt made aware of this also. Original Note: Day Shift- Pt's pain controlled with IV Toradol. Does not want prn Percocet at this time. Reports pain 3/10 more so to left side abd. Will monitor. Ice pack to abd, explained abd splinting. Umbilicus dressing removed per Dr. Mahajan verbal order. Area cleansed, steri-strips in place. Folded 2X2-2 gauze placed and secured with small tegaderm dressing. Reviewed S/S of infection, when to shower, pain management, avoiding constipation. pt plans to discharge home around [id number], her son will come pick her up.
[2019-11-23 12:00] VITALS: BP 136/70; PULSE 71; RESP 16; TEMP 36.6; O2SAT 98
[2019-11-23] MEDS: SODIUM CHLORIDE 0.9% FLUSH 10 ML IV (12:26)
--- NOTE | 2019-11-23 14:42 | CM.DANOTE ---
Discharge Planning/Care Management DCP: assessment: case received, EMR reviewed. Discussed in Team Rounds. Pt is a 54 year old female who admitted yesterday for a planned gynecological procedure. Surgeon: Dr. Mahajan Payer: Amelie Medina RN coordinator Luis noted in Rounds that pt was doing well and a d/c order for home today was expected. A check in now shows that Dr. Mahajan did come in to see pt this morning, ok'd her for home. She left for home in company of family. No d/c concerns were noted by the care team members. CM Discharge Assessment Start: 11/23/19 14:40 Freq: Status: Active Protocol: Document 11/23/19 14:41 ITV (Rec: 11/23/19 14:42 ITV [id number]) Discharge Planning Assessment Advance Directives? No: Requested from Spouse History Provided By Medical Record Prior Living Arrangements RV Household Members spouse Is patient alert and oriented? 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 Jansen-last visit Cardiac Testing Yes: Outside Echo 11/23/18 Hx Pacemaker/ICD No Pacemaker Rep Required? No Cardiac Clearance Received Yes Comment Cardiac records scanned to record Urinary Catheter Present No Hx Urinary Self Catheterization No Diabetes No Patient No Lactating No Have you had any close contact with Unknown someone diagnosed with COVID-19? Marital Status Lives With spouse Patient Discharge Plan Description Return Home Advance Directives? No
== END 2019-11-23 12:55 | disposition home or self-care (01) ==
LOC: OR 10:45 → AC 10:46
PROVIDERS: PCP Obstetrics & Gynecology; Referring Provider Obstetrics & Gynecology; Visit Provider Obstetrics & Gynecology
PROC: 0UT94ZL Resection of Uterus, Supracervical, Percutaneous Endoscopic Approach (ICD-10-PCS; CPT 58542; principal; 2019-11-22 13:30)
DX: D25.9 Leiomyoma of uterus, unspecified (principal); N83.209 Unspecified ovarian cyst, unspecified side; N83.10 Corpus luteum cyst of ovary, unspecified side; N83.8 Other noninflammatory disorders of ovary, fallopian tube and broad ligament
CPT/HCPCS: 58542; 36415; 80048; 85025; J0360; J0690; J1100; J1885; J2250; J2405; J2704; J2795; J3010

== ENCOUNTER → 2020-06-25 10:14 | Outpatient (CLI) | payer OTHER, SELFPAY ==
[2019-12-06 17:13] VITALS: BMI 32.1
[2020-06-25 11:01] LABS: COVID19 -Nasal RAPID Negative (Negative)
== END ==
PROVIDERS: Visit Provider Student in an Organized Health Care Education/Training Program
DX: Z20.822 Contact with and (suspected) exposure to COVID-19 (principal)
CPT/HCPCS: 87635

== ENCOUNTER → 2020-08-15 14:56 | Outpatient (CLI) | payer OTHER, SELFPAY ==
[2019-12-06 17:13] VITALS: BMI 32.1
--- NOTE | 2020-08-15 14:57 | DI.US.S_ITS ---
PROCEDURE: US THYROID INDICATIONS: FOLLOW UP NODULES TECHNIQUE: Real-time scanning was performed of the thyroid gland, with image documentation. COMPARISON: None available at time of interpretation. FINDINGS: Right: Thyroid lobe measures 6.0 x 1.6 x 2.3 cm, and is homogeneous in echotexture. Left: Thyroid lobe measures 5.4 x 1.4 x 1.8 cm, and is homogenous in echotexture. Isthmus: 3.0 mm thick. Nodule number: 1 Location: Left mid Size: 0.9 x 0.6 x 0.6 cm. Composition: Predominantly solid Echogenicity: Hypoechoic Shape: wider than tall. Margins: Smooth Echogenic foci: None Total points: 4 ACR TI-RADS category: Moderately suspicious Nodule number: 2 Location: Left mid Size: 0.9 x 0.8 x 0.7 cm. Composition: Solid Echogenicity: Predominantly isoechoic with sonographic a low Shape: wider than tall. Margins: Smooth Echogenic foci: Peripheral calcification Total points: 5 ACR TI-RADS category: Moderately suspicious Nodule number: 3 Location: Left inferior Size: 0.5 x 0.4 x 0.6 cm. Composition: Solid Echogenicity: Isoechoic Shape: wider than tall. Margins: Smooth Echogenic foci: None Total points: 3 ACR TI-RADS category: Mildly suspicious Nodule number: 4 Location: Right mid Size: 1.2 x 0.8 x 0.9 cm. Composition: Solid Echogenicity: Indeterminate secondary to calcification Shape: wider than tall. Margins: Smooth Echogenic foci: Peripheral calcification Total points: 5 ACR TI-RADS category: Moderately suspicious Nodule number: 5 Location: Right inferior Size: 0.6 x 0.4 x 0.3 cm. Composition: Solid Echogenicity: Predominantly isoechoic with halo Shape: wider than tall. Margins: Smooth Echogenic foci: None Total points: 3 ACR TI-RADS category: Mildly suspicious IMPRESSION: Bilateral thyroid nodules as described above. Recommend continued followup ultrasound as detailed below. ACR TI-RADS definitions and recommendations: TI-RADS 1 (benign): 0 points. FNA not needed. TI-RADS 2 (not suspicious): 2 points. FNA not needed. TI-RADS 3 (mildly suspicious): 3 points. * FNA if 2.5 cm or larger, follow up if 1.5 cm or larger (at 1, 3, and 5 years). TI-RADS 4 (moderately suspicious): 4-6 points. * FNA if 1.5 cm or larger, follow up if 1 cm or larger (at 1, 2, 3, and 5 years). TI-RADS 5 (highly suspicious): 7 points or more. * FNA if 1 cm or larger, follow up if 0.5 cm or larger (every year for 5 years). Dictated by: Phillip Randle [facility] Interpreted: Pascual Foster MD on 08/20/2020 at 9:04 Transcribed by: MARTIN on 08/20/2020 at 9:21 Approved by: Pascual Foster M.D. on 08/20/2020 at 13:29
== END ==
PROVIDERS: PCP Nurse Practitioner Family; Referring Provider Nurse Practitioner Family; Visit Provider Nurse Practitioner Family
DX: E04.2 Nontoxic multinodular goiter (principal)
CPT/HCPCS: 76536

== ENCOUNTER → 2020-10-08 09:53 | Outpatient (CLI) | payer OTHER, SELFPAY ==
[2019-12-06 17:13] VITALS: BMI 32.1
--- NOTE | 2020-10-08 09:54 | DI.RAD.S_ITS ---
PROCEDURE: XR KNEE LT 3V INDICATIONS: pain TECHNIQUE: 3 views of the knee were acquired. COMPARISON: None. FINDINGS: Bones: No fractures or dislocations. No suspicious bony lesions. Soft tissues: Trace joint effusion. No suspicious soft tissue calcifications. IMPRESSION: Trace knee joint effusion; otherwise no definite radiographic abnormality. If pain persists with conservative management, consider cross sectional imaging such as CT or MRI for further assessment. Dictated by: Phillip Randle [facility] Interpreted: Jose Eduardo Sheehan MD on 10/08/2020 at 10:41 Transcribed by: LEONARDA on 10/08/2020 at 10:41 Approved by: Jose Eduardo Sheehan M.D. on 10/08/2020 at 11:20
--- NOTE | 2020-10-08 09:54 | DI.RAD.S_ITS ---
PROCEDURE: XR FOOT RT MIN 3V INDICATIONS: pain TECHNIQUE: 3 views of the foot were acquired. COMPARISON: None. FINDINGS: Bones: No fractures or dislocations. No suspicious bony lesions. Soft tissues: No tibiotalar joint effusion. Achilles tendon appears normal. IMPRESSION: No definite radiographic abnormality. If pain persists with conservative management, consider cross sectional imaging such as CT or MRI for further assessment. Dictated by: Phillip Randle [facility] Interpreted: Jose Eduardo Sheehan MD on 10/08/2020 at 10:41 Transcribed by: LEONARDA on 10/08/2020 at 10:42 Approved by: Jose Eduardo Sheehan M.D. on 10/08/2020 at 11:20
== END ==
PROVIDERS: PCP Nurse Practitioner Family; Referring Provider Nurse Practitioner Family; Visit Provider Nurse Practitioner Family
DX: M79.671 Pain in right foot (principal); M25.562 Pain in left knee; M79.672 Pain in left foot
CPT/HCPCS: 73562; 73630

== ENCOUNTER → 2021-09-23 09:39 | Outpatient (CLI) | payer OTHER, SELFPAY ==
[2021-08-31 13:37] VITALS: BMI 32.1
== END ==
PROVIDERS: PCP Pediatrics; Referring Provider Pediatrics; Visit Provider Pediatrics
DX: Z13.820 Encounter for screening for osteoporosis (principal); Z78.0 Asymptomatic menopausal state; Z90.710 Acquired absence of both cervix and uterus
CPT/HCPCS: 77080

== ENCOUNTER 2023-10-31 11:08 | Emergency (ER) | payer BC, SELFPAY ==
[2023-06-16 09:18] VITALS: BMI 32.1
[2023-10-31] VITALS (14 sets, daily range): BP systolic 129–152; BP diastolic 61–76; PULSE 52–76; RESP 18; TEMP 36.7; O2SAT 98–100; BMI 32.5
--- NOTE | 2023-10-31 12:31 | ED.BACK ---
HPI - Back Pain/Injury <Salvador Bowden MD - Last Filed: 10/31/23 21:56> General Chief Complaint: Back Pain/Injury Stated Complaint: UP RT BACK PAIN Time Seen by Provider: 10/31/23 12:28 Source: patient History of Present Illness HPI Narrative: 58-year-old female with history of endocarditis and thoracic spine osteomyelitis 2018, completed 8 weeks IV antibiotics through right chest Port-A-Cath that had subsequently been removed, prior remote history of total hysterectomy with oophorectomy, no other abdominopelvic surgeries, no known kidney stones, no known gallbladder disease, had sudden onset atraumatic right upper quadrant and right flank pain 9:00 a.m. this morning, worse with deep breathing and movements. She can not recall any fall, trauma, new activities. No fevers or chills. She felt like the pain was so bad it doubled her over, she had nausea but no emesis. She did not pass out. She had no radiation of pain to the extremities upper or lower. This did not feel like her previous back infection related pain. She denies pain on urination, frequency on urination. She had cup of coffee this morning but no food challenge, last bowel movement yesterday was unremarkable. No black or red stools. No cough shortness of breath. No history of blood clots to legs or lungs, no leg pain or swelling symptoms. Related Data Home Medications Medication Instructions Recorded Confirmed famotidine 20 mg tablet 20 mg PO BID 08/04/22 09/27/23 alginate PO BIDWMEAL 02/25/23 09/27/23 estradiol 0.05 mg/24 hr weekly 1 patch transdermal QWEEK 07/06/23 09/27/23 transdermal patch progesterone micronized 100 mg 100 mg PO BEDTIME 09/27/23 09/27/23 capsule Previous Rx's Medication Instructions Recorded CMP Estriol Vaginal Cream 0.2% See Rx Instructions .Route 04/20/21 .COMPLEX #30 grams losartan 50 mg tablet See Rx Instructions .Route 05/12/23 .COMPLEX #90 tabs amlodipine 10 mg tablet See Rx Instructions .Route 08/19/23 .COMPLEX #90 tabs sertraline 100 mg tablet 100 mg PO DAILY #90 tabs 09/13/23 atorvastatin 20 mg tablet See Rx Instructions .Route 09/26/23 .COMPLEX #90 tabs Allergies Allergy/AdvReac Type Severity Reaction Status Date / Time Sulfa (Sulfonamide AdvReac Severe Rash Verified 10/31/23 11:24 Antibiotics) Review of Systems <Salvador Bowden MD - Last Filed: 10/31/23 21:56> Review of Systems Narrative: see HPI Patient History <Salvador Bowden MD - Last Filed: 10/31/23 21:56> Medical History (Updated 10/31/23 @ 12:44 by Salvador Bowden MD) Endocarditis (~07/2018) Bilateral lower extremity edema Screening for osteoporosis Chronic vertigo Post-menopausal Left lateral knee pain Eustachian tube dysfunction Family history of Marfan syndrome Thoracic aortic aneurysm, without rupture Bacterial endocarditis (2018) CHD (congenital heart disease) Mastodynia Mastodynia Hx of aortic aneurysm Family history of ovarian cancer Vertigo (~2015) Abnormal Pap smear of cervix (~1996) Surgical History Anesthesia History of removal of cyst (~1994) Family History Father Multiple myeloma Cancer Mother Mental health problem Alzheimer's dementia, late onset Brother Mitral valve prolapse Sister Ovarian cancer Brother Marfan syndrome Grandfather Stroke Grandmother Alzheimer's disease Grandfather History of heart disease Family/Other Anxiety Social History marital status: household members: spouse occupational status: employed Smoking Status: Never smoker alcohol intake: current substance use type: does not use Smoking Status: Never smoker alcohol intake frequency: a few times a month Substance Use Type: does not use Exam <Salvador Bowden MD - Last Filed: 10/31/23 21:56> Narrative Exam Narrative: GENERAL: Well-developed patient, in mild distress. HEAD: Atraumatic. Normocephalic. EYES: Pupils equal round and reactive. Extraocular motions intact. No scleral icterus. No injection or drainage. ENT: Nose without bleeding, purulent drainage. Throat without erythema, tonsillar hypertrophy or exudate. Airway patent. NECK: Trachea midline. Non tender CARDIOVASCULAR: Regular rate and rhythm without murmurs, gallops, or rubs. RESPIRATORY: Clear to auscultation. Breath sounds equal bilaterally. No wheezes, rales, or rhonchi. GASTROINTESTINAL: Abdomen mild tenderness RUQ, nondistended, no guarding/rebound EXTREMITIES: No edema or joint tenderness. BACK: Nontender without deformity or crepitance. No flank tenderness. NEURO: AOx3. Nonfocal gross motor exam SKIN: No rash or erythema of visible areas Initial Vital Signs Initial Vital Signs: Vital Signs Temperature 98.1 F 10/31/23 11:24 Pulse Rate 62 10/31/23 11:24 Respiratory Rate 18 10/31/23 11:24 Blood Pressure 140/76 10/31/23 11:24 Pulse Oximetry 100 10/31/23 11:24 Oxygen Delivery Method Room Air 10/31/23 11:24 <Jihan Hicks DO - Last Filed: 10/31/23 19:07> Initial Vital Signs Initial Vital Signs: Vital Signs Temperature 98.1 F 10/31/23 11:24 Pulse Rate 62 10/31/23 11:24 Respiratory Rate 18 10/31/23 11:24 Blood Pressure 140/76 10/31/23 11:24 Pulse Oximetry 100 10/31/23 11:24 Oxygen Delivery Method Room Air 10/31/23 11:24 Course <Salvador Bowden MD - Last Filed: 10/31/23 21:56> Orders Ordered: ED Orders 10/31/23 13:12 Ammonia (NH3) Stat Complete Blood Count AUTO DIFF Stat Comprehensive Metabolic Panel Stat Lipase Stat 10/31/23 14:53 US abdomen limited Stat Discontinued Medications Ketorolac Tromethamine (Ketorolac 30 Mg/Ml Vial) 15 mg IV NOW ONE Stop: 10/31/23 12:47 Last Admin: 10/31/23 13:14 Dose: 15 mg Documented By: CTS Vital Signs Vital signs: Vital Signs - 8 hr 10/31/23 13:58 10/31/23 13:58 10/31/23 14:00 Pulse Rate 62 58 L Blood Pressure 152/70 H Pulse Oximetry 99 100 10/31/23 14:00 10/31/23 14:30 10/31/23 14:30 Pulse Rate 52 L Blood Pressure 140/68 138/63 Pulse Oximetry 98 10/31/23 15:00 10/31/23 15:00 10/31/23 15:30 Pulse Rate 58 L Blood Pressure 134/65 129/61 Pulse Oximetry 98 10/31/23 15:30 10/31/23 16:00 10/31/23 16:10 Pulse Rate 58 L 52 L 61 Blood Pressure Pulse Oximetry 99 98 100 10/31/23 16:10 10/31/23 16:30 10/31/23 16:30 Pulse Rate 52 L Blood Pressure 130/73 137/72 Pulse Oximetry 100 10/31/23 16:56 10/31/23 16:56 10/31/23 17:00 Pulse Rate 76 56 L Blood Pressure 151/74 H Pulse Oximetry 98 99 10/31/23 17:00 10/31/23 17:30 10/31/23 17:30 Pulse Rate 58 L Blood Pressure 136/70 144/72 H Pulse Oximetry 98 <Jihan Hicks, - Last Filed: 10/31/23 19:07> Orders Ordered: ED Orders 10/31/23 13:12 Ammonia (NH3) Stat Complete Blood Count AUTO DIFF Stat Comprehensive Metabolic Panel Stat Lipase Stat 10/31/23 14:53 US abdomen limited Stat Discontinued Medications Ketorolac Tromethamine (Ketorolac 30 Mg/Ml Vial) 15 mg IV NOW ONE Stop: 10/31/23 12:47 Last Admin: 10/31/23 13:14 Dose: 15 mg Documented By: CTS Vital Signs Vital signs: Vital Signs - 8 hr 10/31/23 13:58 10/31/23 13:58 10/31/23 14:00 Pulse Rate 62 58 L Blood Pressure 152/70 H Pulse Oximetry 99 100 10/31/23 14:00 10/31/23 14:30 10/31/23 14:30 Pulse Rate 52 L Blood Pressure 140/68 138/63 Pulse Oximetry 98 10/31/23 15:00 10/31/23 15:00 10/31/23 15:30 Pulse Rate 58 L Blood Pressure 134/65 129/61 Pulse Oximetry 98 10/31/23 15:30 10/31/23 16:00 10/31/23 16:10 Pulse Rate 58 L 52 L 61 Blood Pressure Pulse Oximetry 99 98 100 10/31/23 16:10 10/31/23 16:30 10/31/23 16:30 Pulse Rate 52 L Blood Pressure 130/73 137/72 Pulse Oximetry 100 10/31/23 16:56 10/31/23 16:56 10/31/23 17:00 Pulse Rate 76 56 L Blood Pressure 151/74 H Pulse Oximetry 98 99 10/31/23 17:00 10/31/23 17:30 10/31/23 17:30 Pulse Rate 58 L Blood Pressure 136/70 144/72 H Pulse Oximetry 98 MDM - Back Pain/Injury <Salvador Bowden MD - Last Filed: 10/31/23 21:56> Lab Data Attestation: I reviewed the patient's lab results. 10/31/23 13:12 10/31/23 13:12 Labs: Lab Results 10/31/23 Range/Units 13:12 WBC 7.3 (4.5-11.0) X10^3/uL RBC 4.51 (4.0-5.2) X10^6/uL Hgb 13.5 (12.0-16.0) g/dL Hct 40.5 (36-46) % MCV 90.0 (80-100) fL MCH 30.0 (26-34) PG MCHC 33.4 (30-36) % RDW 13.2 (11.6-14.8) % Plt Count 297 (150-400) X10^3/uL Neut % (Auto) 61.9 (50-75) % Lymph % (Auto) 29.1 (25-40) % Russell % (Auto) 6.1 (3-14) % Eos % (Auto) 2.1 (2-4) % Baso % (Auto) 0.8 (0-2) % Neut # (Auto) 4500 (2617-6865) /uL Lymph # (Auto) 2100 (5573-7336) /uL Russell # (Auto) 400 (0-900) /uL Eos # (Auto) 200 (0-450) /uL Baso # (Auto) 100 (0-100) /uL Sodium 141 (137-145) mmol/L Potassium 4.0 (3.4-5.1) mmol/L Chloride 105 (98-107) mmol/L Carbon Dioxide 27 (22-32) mmol/L BUN 13 (7-17) mg/dL Creatinine 0.80 (0.52-1.04) mg/dL Estimated GFR > 60 (>60) mL/min BUN/Creatinine Ratio 16.3 (6-22) Glucose 105 H (70-100) mg/dL Calcium 9.8 (8.4-10.2) mg/dL Total Bilirubin 0.5 (0.2-1.3) mg/dL AST 25 (14-36) IU/L ALT 23 (<35) IU/L Alkaline Phosphatase 97 (38-126) U/L Ammonia < 9 L (9-30) umol/L Total Protein 7.9 (6.3-8.2) g/dL Albumin 4.6 (3.5-5.0) g/dL Globulin 3.3 (1.7-4.1) g/dL Albumin/Globulin Ratio 1.4 (1.0-2.8) Lipase 109 (23-300) U/L Urine Dip Bedside Urine Glucose Negative Bedside Urine Bilirubin - Negative Bedside Urine Ketone - Negative Urine Specific Bradley 1.005 Bedside Urine Occult Blood - Negative Bedside Urine pH 6.5 Bedside Urine Protein - Negative Bedside Urine Urobilinogen - Negative Bedside Urine Nitrite - Negative Bedside Urine Leukocytes - Negative Esterase Imaging Data CT scan - abdomen/pelvis: Radiologist's Impression: [place] [address] CT Scan Report Signed Patient: Maria Guadalupe Padgett MR#: [id number] : 1965 Acct:[id number] Age/Sex: 58 / F Date of Service: 10/31/23 Loc: ED Accession Number: [id number] Procedure: CT abdomen pelvis w con Ordering Provider: Salvador Bowden MD PROCEDURE: CT ABDOMEN PELVIS W CON INDICATIONS: R flank/RUQ pain acute onset 0900, prior TAHBSO TECHNIQUE: After the administration of intravenous contrast, axial sections acquired from the lung bases to the pubic symphysis. Coronal and sagittal reformats were performed. For radiation dose reduction, the following was used: automated exposure control, adjustment of mA and/or kV according to patient size. COMPARISON: None. FINDINGS: Image quality: Diagnostic. Lower Chest: No significant findings. ABDOMEN: Liver: No solid mass. Gallbladder: No radiopaque gallstones or wall thickening. Biliary ducts: No biliary dilation. Pancreas: No ductal dilation. Spleen: Size is within normal limits. Adrenal Glands: No adrenal nodules. Kidneys and Ureters: No hydronephrosis. No solid mass. No complex renal cystic lesion which requires follow up. No nephrolithiasis. Stomach and Bowel: Normal colonic caliber, without significant wall thickening. Normal appendix. Large colonic stool load, particularly within the ascending and transverse colon. Peritoneum: No abnormal intraperitoneal fluid. No free air. Ventral Wall: No significant ventral hernia. Abdominal Nodes: No retroperitoneal or mesenteric adenopathy by size criteria. Vessels: Aorta and inferior vena cava are normal in size. PELVIS: Pelvic Organs: Pessary is present. Hysterectomy. Bladder: No bladder wall thickening, accounting for underdistention. Pelvic Nodes: No enlarged lymph nodes. Miscellaneous: No inguinal hernias are seen. Bones: No aggressive osseous abnormality. IMPRESSION: Moderate colonic stool load, particularly within the ascending and transverse colon. Otherwise, no findings to explain the patient's right flank and right abdominal pain. No nephrolithiasis/hydronephrosis. Normal gallbladder. Normal appendix. Dictated by: Edgardo Mena M.D. on 10/31/2023 at 14:09 Approved by: Edgardo Mena M.D. on 10/31/2023 at 14:12 [facility] Narrative Medical decision making narrative: 58-year-old female with history of prior endocarditis, remote T-spine osteomyelitis, prior total abdominal hysterectomy including oophorectomy, now with atraumatic persisting right upper quadrant abdominal pain, and right flank pain, since 0900 this morning. No known history of kidney stones, no known gallbladder disease. Some tenderness right upper quadrant, also some tenderness. DDx consider biliary colic, cholecystitis, choledocholithiasis, UTI, right ureteral stone, colitis, diverticulitis, ischemic bowel, perforated viscus, musculoskeletal, other. Patient does not want opiate or sedating medications, agreeable to NSAIDs, IV Toradol ordered. Labs sent, anticipate advanced abdominal imaging. Keep NPO for now. Looks more comfortable after IV Toradol. Screening labs serum studies unremarkable. Urinalysis still pending. CT shows no acute changes, moderate colonic stool noted ascending and transverse. This could be the cause of her discomfort, but could be incidental to some other cause such as cholecystitis. Ultrasound right upper quadrant abdomen ordered. Patient given a copy of her CT report. She is agreeable with ultrasound imaging. 1530, RUQ Abdominal US to be performed. Signed out to Dr. Hicks <Jihan Hicks, - Last Filed: 10/31/23 19:07> Lab Data Labs: Lab Results 10/31/23 Range/Units 13:12 WBC 7.3 (4.5-11.0) X10^3/uL RBC 4.51 (4.0-5.2) X10^6/uL Hgb 13.5 (12.0-16.0) g/dL Hct 40.5 (36-46) % MCV 90.0 (80-100) fL MCH 30.0 (26-34) PG MCHC 33.4 (30-36) % RDW 13.2 (11.6-14.8) % Plt Count 297 (150-400) X10^3/uL Neut % (Auto) 61.9 (50-75) % Lymph % (Auto) 29.1 (25-40) % Russell % (Auto) 6.1 (3-14) % Eos % (Auto) 2.1 (2-4) % Baso % (Auto) 0.8 (0-2) % Neut # (Auto) 4500 (4391-3179) /uL Lymph # (Auto) 2100 (3552-1466) /uL Russell # (Auto) 400 (0-900) /uL Eos # (Auto) 200 (0-450) /uL Baso # (Auto) 100 (0-100) /uL Sodium 141 (137-145) mmol/L Potassium 4.0 (3.4-5.1) mmol/L Chloride 105 (98-107) mmol/L Carbon Dioxide 27 (22-32) mmol/L BUN 13 (7-17) mg/dL Creatinine 0.80 (0.52-1.04) mg/dL Estimated GFR > 60 (>60) mL/min BUN/Creatinine Ratio 16.3 (6-22) Glucose 105 H (70-100) mg/dL Calcium 9.8 (8.4-10.2) mg/dL Total Bilirubin 0.5 (0.2-1.3) mg/dL AST 25 (14-36) IU/L ALT 23 (<35) IU/L Alkaline Phosphatase 97 (38-126) U/L Ammonia < 9 L (9-30) umol/L Total Protein 7.9 (6.3-8.2) g/dL Albumin 4.6 (3.5-5.0) g/dL Globulin 3.3 (1.7-4.1) g/dL Albumin/Globulin Ratio 1.4 (1.0-2.8) Lipase 109 (23-300) U/L Urine Dip Bedside Urine Glucose Negative Bedside Urine Bilirubin - Negative Bedside Urine Ketone - Negative Urine Specific Bradley 1.005 Bedside Urine Occult Blood - Negative Bedside Urine pH 6.5 Bedside Urine Protein - Negative Bedside Urine Urobilinogen - Negative Bedside Urine Nitrite - Negative Bedside Urine Leukocytes - Negative Esterase MDM Narrative Medical decision making narrative: 58-year-old female with history of prior endocarditis, remote T-spine osteomyelitis, prior total abdominal hysterectomy including oophorectomy, now with atraumatic persisting right upper quadrant abdominal pain, and right flank pain, since 0900 this morning. No known history of kidney stones, no known gallbladder disease. Some tenderness right upper quadrant, also some tenderness. DDx consider biliary colic, cholecystitis, choledocholithiasis, UTI, right ureteral stone, colitis, diverticulitis, ischemic bowel, perforated viscus, musculoskeletal, other. Patient does not want opiate or sedating medications, agreeable to NSAIDs, IV Toradol ordered. Labs sent, anticipate advanced abdominal imaging. Keep NPO for now. Looks more comfortable after IV Toradol. Screening labs serum studies unremarkable. Urinalysis still pending. CT shows no acute changes, moderate colonic stool noted ascending and transverse. This could be the cause of her discomfort, but could be incidental to some other cause such as cholecystitis. Ultrasound right upper quadrant abdomen ordered. Patient given a copy of her CT report. She is agreeable with ultrasound imaging. 1530, RUQ Abdominal US to be performed. Signed out to Dr. Hicks 10/31/2023 Dr. Hicks: Ultrasound shows no acute changes patient does have a prominent peripancreatic nodule measuring 1.6 x 0.6 cm likely benign. Was not appreciated on CT abdomen pelvis. CT abdomen pelvis shows moderate colonic stool load particularly within the ascending and transverse colon which would be consistent with right-sided discomfort. Patient's urine is negative for blood or infection. Labs including CBC, CMP, ammonia and lipase are all negative. Patient had dose of Toradol. Patient was seen and evaluated by myself as well. Patient has nontender on examination although she states she was quite tender when Dr. Bowden pushed on her abdomen before she would Toradol. She does note that she had prior osteomyelitis in her thoracic spine but states that that was a little bit different symptom. She states this is one-sided different sensation. Has since resolved. Discussed with patient workup so far including nodule that should be followed up with repeat imaging in the next 6 months to a year. Patient is going to try some stool softeners and fluids. Discussed if she sees rashes fevers if pain is changing or seems more like her prior osteomyelitis or other new or concerning changes she is to return for re-evaluation. Patient feels comfortable with this plan she defers anything for pain. Discharge Plan Departure Patient Disposition: Home Clinical Impression: Right upper quadrant abdominal pain Activity Restrictions/Additional Instructions: Your imaging today does show a peripancreatic nodule, this is likely benign but follow up with your primary care to let them know this is present so they can monitor it. Your imaging also showed quite a bit of stool in the ascending and transverse colon which can cause right-sided pain as well. You can also watch for any rash or skin changes such as red spots or small blisters such as shingles if you see this change please return or follow up with primary care for antivirals. I would recommend taking a stool softeners as his Dulcolax or Colace once or twice daily. Make sure to drink fluids with this these medications to be well hydrated. Please return for fevers, rapidly worsening abdominal back or flank pain, persistent vomiting, lightheadedness or passing out, black or bloody stools or other new or concerning changes. Prescriptions: No Action CMP Estriol Vaginal Cream 0.2% See Rx Instructions .ROUTE .COMPLEX Qty: 30 3RF Rx Instructions: Apply 0.5 g to vagina at bedtime for 2 weeks and then twice weekly thereafter; losartan 50 mg tablet See Rx Instructions .ROUTE .COMPLEX Qty: 90 1RF Dose Instruction: TAKE 1 TABLET BY MOUTH DAILY Rx Instructions: TAKE 1 TABLET BY MOUTH DAILY amlodipine 10 mg tablet See Rx Instructions .ROUTE .COMPLEX Qty: 90 1RF Dose Instruction: TAKE 1 TABLET BY MOUTH DAILY Rx Instructions: TAKE 1 TABLET BY MOUTH DAILY sertraline 100 mg tablet 100 mg PO DAILY Qty: 90 0RF atorvastatin 20 mg tablet See Rx Instructions .ROUTE .COMPLEX Qty: 90 1RF Dose Instruction: TAKE 1 TABLET(20 MG) BY MOUTH DAILY Rx Instructions: TAKE 1 TABLET(20 MG) BY MOUTH DAILY famotidine 20 mg tablet 20 mg PO BID estradiol 0.05 mg/24 hr patch weekly 1 patch transdermal QWEEK progesterone micronized 100 mg capsule 100 mg PO BEDTIME Rx Instructions: off 7 days; repeat cycle alginate PO BIDWMEAL Referrals: Sarah Christianson DO [Primary Care Provider] - Stand Alone Forms: Patient Portal/API
--- NOTE | 2023-10-31 12:50 | DI.CT.S_ITS ---
PROCEDURE: CT ABDOMEN PELVIS W CON INDICATIONS: R flank/RUQ pain acute onset 0900, prior TAHBSO TECHNIQUE: After the administration of intravenous contrast, axial sections acquired from the lung bases to the pubic symphysis. Coronal and sagittal reformats were performed. For radiation dose reduction, the following was used: automated exposure control, adjustment of mA and/or kV according to patient size. COMPARISON: None. FINDINGS: Image quality: Diagnostic. Lower Chest: No significant findings. ABDOMEN: Liver: No solid mass. Gallbladder: No radiopaque gallstones or wall thickening. Biliary ducts: No biliary dilation. Pancreas: No ductal dilation. Spleen: Size is within normal limits. Adrenal Glands: No adrenal nodules. Kidneys and Ureters: No hydronephrosis. No solid mass. No complex renal cystic lesion which requires follow up. No nephrolithiasis. Stomach and Bowel: Normal colonic caliber, without significant wall thickening. Normal appendix. Large colonic stool load, particularly within the ascending and transverse colon. Peritoneum: No abnormal intraperitoneal fluid. No free air. Ventral Wall: No significant ventral hernia. Abdominal Nodes: No retroperitoneal or mesenteric adenopathy by size criteria. Vessels: Aorta and inferior vena cava are normal in size. PELVIS: Pelvic Organs: Pessary is present. Hysterectomy. Bladder: No bladder wall thickening, accounting for underdistention. Pelvic Nodes: No enlarged lymph nodes. Miscellaneous: No inguinal hernias are seen. Bones: No aggressive osseous abnormality. IMPRESSION: Moderate colonic stool load, particularly within the ascending and transverse colon. Otherwise, no findings to explain the patient's right flank and right abdominal pain. No nephrolithiasis/hydronephrosis. Normal gallbladder. Normal appendix. Dictated by: Edgardo Mena M.D. on 10/31/2023 at 14:09 Approved by: Edgardo Mena M.D. on 10/31/2023 at 14:12
[2023-10-31] MEDS: KETOROLAC 30 MG/ML VIAL 15 MG IV (13:14)
[2023-10-31 13:34] LABS: Alanine Aminotransferase 23 IU/L (<35); Albumin 4.6 g/dL (3.5-5.0); Albumin Globulin Ratio 1.4 (1.0-2.8); Alkaline Phosphatase 97 U/L (38-126); Aspartate Aminotransferase 25 IU/L (14-36); BUN Creatinine Ratio 16.3 (6-22); Bilirubin Total 0.5 mg/dL (0.2-1.3); Blood Urea Nitrogen 13 mg/dL (7-17); Calcium 9.8 mg/dL (8.4-10.2); Carbon Dioxide 27 mmol/L (22-32); Chloride 105 mmol/L (98-107); Estimated Glomerular Filt Rate > 60 mL/min (>60); Globulin 3.3 g/dL (1.7-4.1); Glucose 105 mg/dL (70-100); HEMOLYSIS < 15 (0-50); Lipase 109 U/L (23-300); Sodium 141 mmol/L (137-145); Total Protein 7.9 g/dL (6.3-8.2)
[2023-10-31 13:35] LABS: Ammonia (NH3) < 9 umol/L (9-30)
[2023-10-31 13:55] LABS: Add Manual Diff / Slide Review NO; Basophils Absolute Auto 100 /uL (0-100); Basophils Percent Auto 0.8 % (0-2); Eosinophils Absolute Auto 200 /uL (0-450); Eosinophils Percent Auto 2.1 % (2-4); Hematocrit 40.5 % (36-46); Hemoglobin 13.5 g/dL (12.0-16.0); Lymphocytes Absolute Auto 2100 /uL (1100-4500); Lymphocytes Percent Auto 29.1 % (25-40); Mean Corpuscular HGB Conc 33.4 % (30-36); Monocytes Absolute Auto 400 /uL (0-900); Monocytes Percent Auto 6.1 % (3-14); Neutrophils Absolute Auto 4500 /uL (1500-7000); Neutrophils Percent Auto 61.9 % (50-75); Platelet Count 297 X10^3/uL (150-400); Red Blood Cell Count 4.51 X10^6/uL (4.0-5.2); Red Cell Distribution Width 13.2 % (11.6-14.8); White Blood Cell Count 7.3 X10^3/uL (4.5-11.0)
--- NOTE | 2023-10-31 14:53 | DI.US.S_ITS ---
PROCEDURE: US ABDOMEN LIMITED INDICATIONS: RUQ PAIN TECHNIQUE: Real-time scanning was performed of the abdominal and retroperitoneal organs, with image documentation. COMPARISON: [facility], CT, CT ABDOMEN PELVIS W CON, 10/31/2023, 13:52. FINDINGS: Liver: Liver is normal in size and homogeneous in echotexture. Gallbladder: No gallstones. No wall thickening. No pericholecystic edema. Negative sonographic Clay's sign. Biliary ducts: Intrahepatic bile ducts are non-dilated. Extrahepatic bile duct caliber measures 4 mm. Normal is 6-7 mm or less in diameter, or 10 mm or less post-cholecystectomy. Pancreas: Visualized portions of the pancreas are sonographically normal. Prominent peripancreatic nodule measuring 1.6 x 0.6 centimeter, likely benign. Miscellaneous: No free abdominal fluid. IMPRESSION: No gallbladder pathology. Dictated by: Edgardo Mena M.D. on 10/31/2023 at 17:06 Approved by: Edgardo Mena M.D. on 10/31/2023 at 17:07
== END 2023-10-31 17:45 | disposition home or self-care (01) ==
PROVIDERS: Emergency Medicine; Emergency Provider Emergency Medicine; PCP Family Medicine
DX: R10.11 Right upper quadrant pain (principal)
CPT/HCPCS: 36415; 74177; 76705; 80053; 81003; 82140; 83690; 85025; 96374; 99284; J1885; Q9967

== ENCOUNTER → 2024-04-09 16:23 | Outpatient (CLI) | payer OTHER, SELFPAY ==
[2023-06-16 09:18] VITALS: BMI 32.1
--- NOTE | 2024-04-09 16:27 | DI.US.S_ITS ---
PROCEDURE: US ABDOMEN LIMITED INDICATIONS: recheck pancreatic nodule TECHNIQUE: Real-time focused scanning was performed of the abdomen, with image documentation. COMPARISON: [facility], US, US ABDOMEN LIMITED, 10/31/2023, 15:42. [facility], CT, CT ABDOMEN PELVIS W CON, 10/31/2023, 13:52. FINDINGS: Limited evaluation of the pancreas demonstrates a persistent 1.1 x 0.6 x 1.4 cm hypoechoic, avascular mass, likely representing a lymph node along the anti-mesenteric border of the pancreatic head/body junction. IMPRESSION: Persistent 0.6 cm short axis lymph node adjacent to the pancreas. This is a nonspecific finding. Dictated by: Hiren Donovan M.D. on 04/10/2024 at 8:44 Approved by: Hiren Donovan M.D. on 04/10/2024 at 8:47
== END ==
PROVIDERS: PCP Family Medicine; Referring Provider Family Medicine; Visit Provider Family Medicine
DX: K86.9 Disease of pancreas, unspecified (principal)
CPT/HCPCS: 76705